=== PATIENT | female | born 1955 ===

== ENCOUNTER 2016-12-15 12:37 | Inpatient (IN) | payer MEDICARE, MEDICAID ==
[~2016-12-15] VITALS: Ht 165.1 cm; Wt 66.2 kg
--- NOTE | 2016-12-15 15:40 | NUR ---
PATIENT ARRIVED ON UNIT AT 1540 [facility], NO SIGS OF DISTRESS, NO COMPLAINTS OF PAIN, 139/89, 108 BPM, 17, 99% ON ROOM AIR, 4/10 PAIN LEVEL, DENIES NEED FOR PAIN MEDICATION, FAMILY AT BED SIDE, MEDICATIONS ENTER, MD LANDRY AND HONEY AWARE OF PATIENTS ARRIVAL, REDNESS NOTED TO SACRAL AREA, ABRASION NOTED TO PATIENTS RIGHT THIGH, LEFT SURGICAL SITE DOCUMENTED AND RE-DRESSED,FAMILY AT BED SIDE, EXTENDED STAY FORM SIGNED, MRSA SWAB SENT TO LAB, FAMILY REQUESTED URINE ANAYLSIS, ORDERS IN PLACE FOR CLEAN CATCH UA
[2016-12-15] MEDS ORDERED: PRAM0.253 PO (16:04)
[2016-12-15] MEDS ORDERED: SELE5CAP PO (16:04)
[2016-12-15] MEDS ORDERED: RIVA10TA PO (16:04)
[2016-12-15] MEDS ORDERED: OXYC-128 PO (16:04)
[2016-12-15] MEDS ORDERED: ACET-2154 PO (16:04)
[2016-12-15] MEDS ORDERED: LEVO75TA7 PO (16:04)
[2016-12-15] MEDS ORDERED: CARB-93 PO ×2 (16:04)
[2016-12-15] MEDS ORDERED: DOCU100C36 PO (16:04)
[2016-12-15 18:31] LABS: BILIRUBIN,TOTAL 0.7 mg/dL (0.2-1.0); CREATININE 0.7 mg/dL (0.6-1.3); MAGNESIUM 1.9 mg/dL (1.8-2.4); PHOSPHOROUS 3.3 mg/dL (2.5-4.9); POTASSIUM 3.7 mmol/L (3.5-5.1); TOTAL PROTEIN, SERUM 6.4 g/dL (6.4-8.2)
[2016-12-15 18:40] LABS: BASOPHILS % (AUTO) 0.1 % (0.0-2.0); EOSINOPHILS # (AUTO) 0.1 K/uL (0.0-0.7); EOSINOPHILS % (AUTO) 2.1 % (0.0-7.0); LYMPHOCYTES # (AUTO) 0.6 K/UL (0.8-4.8); LYMPHOCYTES % (AUTO) 8.9 % (20.5-51.5); MEAN CORPUSCULAR HEMOGLOBIN 29.5 UUG (27.0-31.0); MEAN CORPUSCULAR HGB CONC 33 g/dL (32.0-37.0); MEAN CORPUSCULAR VOLUME 88.4 FL (81.0-99.0); MONOCYTES # (AUTO) 0.3 K/UL (0.1-1.30); MONOCYTES % (AUTO) 4.1 % (0.0-11.0); NEUTROPHILS % (AUTO) 84.8 % (38.5-71.5); PLATELET COUNT (AUTO) 224 K/UL (150-450); RED BLOOD CELL COUNT(AUTO) 4.07 MIL/UL (4.2-5.4)
[2016-12-15] MEDS ORDERED: DOCUSATE SODIUM 100 MG CAPSULE PO PRN (19:45)
[2016-12-15] MEDS ORDERED: diphenhydrAMINE 25 MG CAP PO PRN (20:00)
--- NOTE | 2016-12-15 20:30 | NUR ---
Received pt on bed awake, agitated and restless. Family member at bedside during this time. Patient kept on taking off abductor pillow. Benadryl PRN for sleep and tylenol PRN given as ordered and well tolerated. Daughter refused due parkinson meds from the [facility], stated that she wants the medication that was brought from home. Called and informed pharmacy regarding daughter's concern. Call light within reach. Safety precautions observed and maintained. Will continue to monitor.
[2016-12-15] MEDS: RIVAROXABAN 10 MG TABLET PO SCH (20:41)
[2016-12-15] MEDS: ACETAMINOPHEN 325 MG TABLET PO PRN (20:41)
[2016-12-15] MEDS: PRAMIPEXOLE 1 MG PO SCH (21:00)
[2016-12-15] MEDS ORDERED: PRAMIPEXOLE 1 MG TABLET PO SCH (21:00)
[2016-12-15] MEDS ORDERED: CARBIDOPA/LEVODOPA 25-100MG TABLET PO SCH (21:00)
[2016-12-15] MEDS ORDERED: CARBIDOPA/LEVODOPA CR 25-100MG TABLET.SA PO SCH (21:00)
--- NOTE | 2016-12-15 21:00 | NUR ---
Pharmacy delivered parkinson meds and adjusted administration time. Due 2100 medication Pramipexole 1mg refused by the daughter. explained risk and benefits, still refused, stated that pt will just take it tomorrow morning.
--- NOTE | 2016-12-15 22:30 | NUR ---
Pt still restless and agitated, action installer made aware, ativan 1mg PO x1 was ordered. Order carried out. Pt has also due meds at 2300 (carbidopa-levodopa 50-200) but daughter refused that medication and wants the other medication carbidopa-levodopa 25-100 to be given instead. explained to the daughter that medication is not due till the next day but daughter is still insisting, stated that the pt missed 2 doses of medication already. Notified overnight houseperson and talked to the action installer pharmacist about daughter's request. Pharmacy agreed to give the unscheduled medication.
[2016-12-15] MEDS ORDERED: LORAZEPAM 1 MG TABLET PO PRN (23:00)
[2016-12-15] MEDS: CARBIDOPA LEVODOPA PO SCH ×2 (23:00)
[2016-12-15] MEDS ORDERED: LORAZEPAM 1 MG TABLET PO ONE (23:00)
--- NOTE | 2016-12-15 23:00 | NUR ---
Unscheduled medication and ativan given as ordered and as per daughter's request, tolerated well. safety precautions observed and maintained. Will continue to monitor the pt.
[2016-12-15] MEDS ORDERED: LORAZEPAM 1 MG TABLET ONE (23:02)
--- NOTE | 2016-12-16 01:29 | NUR ---
Pt was calm, lying in bed comfortably with HOB elevated. No acute distress noted. Abductor pillow in placed. frequently checked for safety. Call light within reach. All needs attended. Will continue to monitor.
--- NOTE | 2016-12-16 05:27 | NUR ---
Pt rested well. No s/s of distress was noted. Family member still at bedside. No other complaints was noted. Kept clean, dry and comfortable. Call light within. Frequently checked for safety. All needs anticipated. Will endorse new orders to day shift nurse.
--- NOTE | 2016-12-16 06:50 | NUR ---
Pt awake during this time. Incontinent care rendered. Daughter and son still concerned regarding patient's condition. MD made aware, still awaiting for response. Will endorse to day shift.
[2016-12-16] MEDS ORDERED: LEVOTHYROXINE SODIUM 75 MCG TABLET PO SCH (07:00)
[2016-12-16] MEDS: LEVOTHYROXINE 75 MCG PO SCH (07:41)
[2016-12-16] MEDS ORDERED: PRAMIPEXOLE 0.25 MG TABLET PO SCH (09:00)
[2016-12-16] MEDS ORDERED: CARBIDOPA/LEVODOPA 25-100MG TABLET PO SCH (09:00)
[2016-12-16] MEDS ORDERED: SELEGILINE HCL 5 MG PO SCH (09:00)
[2016-12-16] MEDS ORDERED: SELEGILINE HCL 5 MG TABLET PO SCH (09:00)
[2016-12-16] MEDS: SELEGILINE 5 MG PO SCH (09:06)
[2016-12-16] MEDS: PRAMIPEXOLE 1 MG PO SCH ×2 (09:07→15:04)
[2016-12-16] MEDS: CARBIDOPA LEVODOPA PO SCH ×4 (09:07→22:50)
[2016-12-16 09:26] LABS: *BILIRUBIN,URIN NEGATIVE (NEGATIVE); *BLOOD, URINE NEGATIVE (NEGATIVE); *CLARITY,URINE TURBID (CLEAR); *COLOR,URINE YELLOW (YELLOW); *KETONES,URINE 2+ (NEGATIVE); *PROTEIN,URINE NEGATIVE (NEGATIVE); LEUKOCYTE ESTERASE ,URINE NEGATIVE (NEGATIVE); NITRITE, URINE NEGATIVE (NEGATIVE); PH,URINE 7.5 (5.0-8.0); UGLUCOSE NEGATIVE (NEGATIVE)
[2016-12-16 10:28] LABS: BACTERIA,URINE NONE SEEN /HPF (NONE SEEN); RBC,URINE NONE SEEN /HPF (0-3); WBC,URINE 0-3 /HPF (0-3)
[2016-12-16 10:29] LABS: SQUAMOUS EPITHELIAL CELL,UR FEW /HPF (NONE SEEN); URINE AMORPHOUS PHOSPHATES MANY /HPF
--- NOTE | 2016-12-16 11:05 | NUR ---
Received a call from Dr. Lara with order to do x-ray of left hip as per family request. Family made aware. Informed him of the lab and urinalysis results with no new order.
[2016-12-16] MEDS: ACETAMINOPHEN 325 MG TABLET PO PRN (12:56)
[2016-12-16] MEDS ORDERED: HALOPERIDOL 0.5 MG TABLET PO PRN (14:15)
--- NOTE | 2016-12-16 14:15 | NUR ---
Dr. Armin Lara came to see patient and ordered Haldol 0.5mg PO Q6hrs PRN and discontinue Benadryl. Patient and family at bedside aware. Also he ordered to change frequency of Pramipexole to BID as previously been taken by patient.
--- NOTE | 2016-12-16 19:30 | NUR ---
Received patient sitting up in bed. Daughter and son at bedside. Patient is alert and verbally responsive. Able to make needs known. Denies any pain and discomfort at this time. No acute distress. Abductor pillow in place. Kept clean and dry. All needs attended to promptly. Call light within reach. Will continue to monitor.
[2016-12-16 20:00] VITALS: BP 101/71
[2016-12-16] MEDS: RIVAROXABAN 10 MG TABLET PO SCH (20:27)
--- NOTE | 2016-12-16 22:39 | NUR ---
Patient noted to be severely agitated hitting and screaming at daughter who is at her bedside. Approached patient in a calm and friendly manner. Explained to patient who I was and I was doing there and patient still noted to be extremely agitated. Batch Operator at bedside with me. Haldol 0.5mg PO 1 tablet given as ordered when patient finally calmed down and was able to take and swallow PO medication. Minutes later patient still noted to be very agitated. Still trying to hit daughter and also screaming out loud. We were unable to make out what she was saying. Daughter requested if we could get an alternative route for administration of medication. Dr. Armin Lara made aware of patient's status and aware that patient was able to take PO Haldol tablet. Dr. Lara with an order for Haldol 1mg IM x1. New orders noted. Daughter made aware of new order, but wanted to wait and see if PO medication would kick in before giving IM injection. Explained all risks and benefits of both medications. Daughter verbalizes understanding, but still wants to wait. All needs attended to promptly. Call light within reach. Will continue to monitor.
[2016-12-16] MEDS ORDERED: HALOPERIDOL LACTATE 5 MG/1 ML VIAL IM PRN (23:15)
[2016-12-16] MEDS ORDERED: HALOPERIDOL LACTATE 5 MG/1 ML VIAL IM ONE (23:15)
--- NOTE | 2016-12-16 23:30 | NUR ---
Patient still noted to be agitated still yelling and screaming out loud. Patient also noted to be trying to rip out her abductor pillow and pounding call light on the side of the bed making a lot of noise. She was also noted trying to greens picker anything she could on beside table. She had a towel and tried to hit staff. Daughter and airport operations supervisor at bedside with me at this time. Daughter still refusing for mom to receive Haldol IM injection bc she wanted to wait for her brother and wait to see what her cousin who is a Psychiatrist says. Mental Health Assistant and myself verbalized to daughter that patient will need IM medication because patient is becoming more agitated and can become a danger to self and hurt herself, but daughter still refused. Will continue to monitor patient.
--- NOTE | 2016-12-17 00:06 | NUR ---
Patient still noted to be agitated. Daughter finally agreed for Haldol IM injection to be given. Received medication from rocket propellant plant supervisor and Haldol 1mg (0.2 ml) was drawn up and administered to patient on the right thigh. Another RN and rocket propellant plant supervisor was with me at bedside. Patient tolerated well. All needs attended to promptly. Call light within reach. Will continue to monitor.
[2016-12-17] MEDS ORDERED: HALOPERIDOL LACTATE 5 MG/1 ML VIAL ONE (00:11)
--- NOTE | 2016-12-17 00:30 | NUR ---
Patient finally calmed down. Daughter and Son at bedside at this time. Son arrived to unit around 0015. All needs attended to promptly. Call light within reach. Will continue to monitor.
--- NOTE | 2016-12-17 01:00 | NUR ---
Patient is asleep comfortably at this time. Breathing normally. No acute distress noted. No SOB. Daughter and son at bedside. All needs attended to promptly. Call light within reach. Will continue to monitor.
--- NOTE | 2016-12-17 03:00 | NUR ---
Patient sleeping comfortably. Checked on patient and asked daughter if it's okay if we change her mom and daughter verbalizes that she didn't want it right now and wants patient to sleep.
--- NOTE | 2016-12-17 06:30 | NUR ---
Went to check on patient. Still sleeping comfortably in bed. Asked daughter if we can change patient and daughter verbalized to me that she wanted it done in an hour. Same goes for patients AM medication. Verbalized if she can get medication in an hour. Daughter aware that medication can be given an hour before and an hour after. Will endorse to day shift. All needs attended to promptly. Call light within reach. Will continue to monitor.
[2016-12-17 08:00] VITALS: BP 110/68
--- NOTE | 2016-12-17 08:00 | NUR ---
Received patient awake in bed, verbally responsive. No complain of pain or discomfort at this time. No SOB/dyspnea. Daughter and son at bedside. Call light placed within reach.
[2016-12-17] MEDS: LEVOTHYROXINE 75 MCG PO SCH (08:11)
--- NOTE | 2016-12-17 08:15 | NUR ---
Levothyroxine administered as endorsed by second shift supervisor nurse. Daughter requested to change schedule of Levothyroxine at 8am since patient wakes up late. Notified pharmacy c/o Deborah
[2016-12-17 08:17] LABS: BASOPHILS % (AUTO) 0.6 % (0.0-2.0); EOSINOPHILS # (AUTO) 0.2 K/uL (0.0-0.7); EOSINOPHILS % (AUTO) 4.6 % (0.0-7.0); HEMATOCRIT 33.3 % (31.2-41.9); HEMOGLOBIN 11.5 g/dL (10.9-14.3); LYMPHOCYTES # (AUTO) 0.9 K/uL (20.0-40.0); LYMPHOCYTES % (AUTO) 17.6 % (20.5-51.5); MEAN CORPUSCULAR HEMOGLOBIN 30.6 uug (24.7-32.8); MEAN CORPUSCULAR HGB CONC 34 g/dL (32.3-35.6); MEAN CORPUSCULAR VOLUME 89.1 fL (75.5-95.3); MONOCYTES # (AUTO) 0.4 K/uL (2.0-10.0); MONOCYTES % (AUTO) 7.5 % (0.0-11.0); NEUTROPHILS # (AUTO) 3.5 K/uL (1.8-8.9); NEUTROPHILS % (AUTO) 69.7 % (38.5-71.5); PLATELET COUNT (AUTO) 233 K/uL (179-408); RED BLOOD CELL COUNT(AUTO) 3.74 MIL/uL (3.63-4.92)
[2016-12-17 08:33] LABS: CREATININE 0.6 mg/dL (0.6-1.3); PHOSPHOROUS 3.7 mg/dL (2.5-4.9); POTASSIUM 3.7 mmol/L (3.5-5.1)
[2016-12-17 08:37] LABS: WHITE BLOOD COUNT (AUTO) 5.1 K/uL (3.8-11.8)
[2016-12-17] MEDS: PRAMIPEXOLE 1 MG PO SCH ×2 (09:20→15:16)
[2016-12-17] MEDS: SELEGILINE 5 MG PO SCH (09:20)
[2016-12-17] MEDS: CARBIDOPA LEVODOPA PO SCH ×4 (09:21→22:49)
[2016-12-17] MEDS ORDERED: LEVOTHYROXINE 75 MCG PO SCH (09:42)
[2016-12-17] MEDS: ACETAMINOPHEN 325 MG TABLET PO PRN (11:55)
--- NOTE | 2016-12-17 14:05 | NUR ---
Dr. Armin Lara came to see patient and ordered Haldol 1mg PO daily at 5PM . Order carried out. Patient and son at bedside aware.
[2016-12-17] MEDS ORDERED: HALOPERIDOL 1 MG TABLET PO SCH (17:00)
[2016-12-17] MEDS: HALOPERIDOL 1 MG TABLET PO SCH (19:00)
--- NOTE | 2016-12-17 19:30 | NUR ---
RECEIVED PT FROM DAY SHIFT NURSE. SHIFT REPORT AT BEDSIDE. FAMILY AT BEDSIDE. PT A/O WITH NO SIGNS OF PAIN, SOB, OR ACUTE DISTRESS. PERTINENT ASSESSMENT DONE. SAFETY MEASURES IMPLEMENTED. CALL LIGHT PLACED WITHIN REACH OF PT. WILL CONTINUE TO MONITOR PT THROUGH OUT SHIFT.
[2016-12-17] MEDS: RIVAROXABAN 10 MG TABLET PO SCH (20:22)
[2016-12-17 20:31] VITALS: BP 105/64
[2016-12-18] MEDS: ACETAMINOPHEN 325 MG TABLET PO PRN ×3 (03:10→23:07)
--- NOTE | 2016-12-18 06:40 | NUR ---
PT SLEPT COMFORTABLY THROUGH OUT THE SHIFT. FAMILY AT BEDSIDE. NO SIGNS OF SOB OR ACUTE DISTRESS. ALL NEEDS ATTENDED TO. MEDICATIONS ADMINISTERED ORDERED. CALL LIGHT WITHIN REACH OF PT. WILL ENDORSE TO MORNING SHIFT NURSE.
--- NOTE | 2016-12-18 07:20 | NUR ---
Received patient asleep, lying on bed on a semi-mcintosh's position no moaning or facial grimace noted. Patient's daughter at bedside awake. Per patient's daughter not to take patient's vital signs at this time and to let the patient sleep. Also patient's daughter stated not to give the Levothyroxine at 0800 as scheduled but to give it at 0830 since the patient is soundly asleep at this time. Called Dr. Armin Lara and informed of patient's daughter request. Call light within reach. Will continue to monitor. Patient's door remained close as per daughter's request.
[2016-12-18] MEDS: LEVOTHYROXINE 75 MCG PO SCH (08:31)
[2016-12-18] MEDS: SELEGILINE 5 MG PO SCH (09:15)
[2016-12-18] MEDS: CARBIDOPA LEVODOPA PO SCH ×4 (09:15→23:07)
[2016-12-18] MEDS: PRAMIPEXOLE 1 MG PO SCH ×2 (09:15→15:15)
--- NOTE | 2016-12-18 09:55 | NUR ---
Patient noted awake, lying on bed on a semi- mcintosh's position with no SOB or distress noted. Family member at bedside. call light within reach. Responsive to verbal and tactile stimuli. All needs were attended and anticipated. Will continue to monitor.
--- NOTE | 2016-12-18 10:55 | NUR ---
Noted patient awake, alert and oriented, performing exercise with PT without difficulty, no SOB or distress noted, tolerating well. Will continue to monitor.
[2016-12-18] MEDS: HALOPERIDOL 1 MG TABLET PO SCH (19:00)
--- NOTE | 2016-12-18 19:13 | NUR ---
patient awake, alert and oriented, no complaints of discomforts throughout the shift. Family member at bedside the at all times. All needs were attended and anticipated. All due medications were given, all were tolerated well. Call light within reach. Will endorse to incoming shift.
--- NOTE | 2016-12-18 19:29 | NUR ---
Patient refused the Haldol as scheduled. Explained risks and benefits but patient and family at bedside strongly refused the medication to be given. Will endorse to incoming shift.
--- NOTE | 2016-12-18 19:30 | NUR ---
Received patient on her wheelchair accompanied by her sister. Patient was awake, alert, oriented, verbally responsive. Denies pain at this time. No signs of respiratory distress. Surgical site assessed no signs of infection or any ready Safety measures provided. Placed the call light in reach.
[2016-12-18 20:00] VITALS: BP 124/80
[2016-12-18] MEDS: RIVAROXABAN 10 MG TABLET PO SCH (20:10)
--- NOTE | 2016-12-19 02:05 | NUR ---
Resident requested for her tylenol 650 mg due to generalized body pain and was given for her pain management. Will reassess and continue to monitor the patient.
[2016-12-19] MEDS: ACETAMINOPHEN 325 MG TABLET PO PRN ×3 (02:41→21:56)
[2016-12-19] MEDS: LEVOTHYROXINE 75 MCG PO SCH (06:52)
--- NOTE | 2016-12-19 07:12 | NUR ---
Patient slept the entire night. No signs of discomfort or pain. Vital signs are stable, not in respiratory distress. Levothyroxine was given early around 7am per patient's request. Will endorse to AM nurse.
[2016-12-19 07:16] VITALS: BP 128/84
--- NOTE | 2016-12-19 07:30 | NUR ---
Received patient awake, verbally responsive, afebrile, not in any form of acute distress. She denies any pain or discomfort at this time. Call light placed within reach. Reminded to use call light when in need of assistance. Assisted to her needs.
[2016-12-19] MEDS: SELEGILINE 5 MG PO SCH (08:40)
[2016-12-19] MEDS: CARBIDOPA LEVODOPA PO SCH ×4 (08:40→23:01)
[2016-12-19] MEDS: PRAMIPEXOLE 1 MG PO SCH ×2 (09:17→15:34)
--- NOTE | 2016-12-19 19:30 | NUR ---
Received patient seated in her wheelchair, wheels locked with daughter at her side. Patient is awake, alert and no agitations noted at this time. Vital signs checked, in stable condition. Safety measures implemented.
--- NOTE | 2016-12-19 20:00 | NUR ---
Daughter asked for help in putting the patient to her bed from her wheelchair. Assisted patient to bed with full assistance. Helped patient changed to her sleeping gown. Due meds. given. Changed diaper, per soiling. Marsha care done. Will monitor the patient.
[2016-12-19] MEDS: RIVAROXABAN 10 MG TABLET PO SCH (20:17)
--- NOTE | 2016-12-20 01:08 | NUR ---
Patient is awake and sitting up at the side of the bed wanting to get up. Noted to be agitated. Patient is talking to daughter in a very angry way. Trying to get up and go out of room. Unable to keep pt. in bed. Assisted her up with walker. Pt. wanted to walk around, so daughter and another nurse assisted patient down the hallway of the unit. Patient stomping walker on floor making a lot of noise and yelling. Patient made her way out of the unit making lots of noise. Notified household appliance mechanic. Per daughter, she requested to ask the doctor if her mother can receive Seroquel instead of taking the Haldol. Called [facility] and spoke with MD scale reclamation tender, Dr. Bob. Made him aware of patients hx and current situation and pt daughters request to have Seroquel ordered. Per MD, he did not feel comfortable prescribing that medication to patient. No hx of patient receiving Seroquel in records noted. MD also asked if pt. had any recent TSH levels done because TSH levels can lead to agitation, but verbalized that their wasn't any recent record of TSH result on file. MD ordered TSH levels to be done in AM and MD verbalized to let daughter know that Haldol would be better to give to patient than Seroquel because Haldol wears quicker than Seroquel and can cause her to be groggy. Relayed information to daughter and verbalized understanding, but requested for Haldol IM injection instead. Patient noted in justice way and still noted to be slightly agitated sitting in wheelchair. Another RN and division supervisor is with patient. All needs attended to promptly. Call light within reach. Will continue to monitor.
--- NOTE | 2016-12-20 01:20 | NUR ---
Patient still noted to be slightly agitated. Daughter requested for Haldol IM injection. This time informed Dr. Carr of patients behavior with new orders noted. Daughter made aware.
[2016-12-20] MEDS ORDERED: HALOPERIDOL LACTATE 5 MG/1 ML VIAL IM ONE (01:30)
--- NOTE | 2016-12-20 01:30 | NUR ---
Patient assisted back to bed. Patient noted to be calm at this time. Haldol IM was not given at this time. All needs attended to promptly. Call light within reach. Will continue to monitor.
--- NOTE | 2016-12-20 01:40 | NUR ---
Son is at bedside at this time. Patient noted to be sleeping comfortably. No acute distress noted. All needs attended to promptly. Call light within reach. Will continue to monitor.
[2016-12-20] MEDS: ACETAMINOPHEN 325 MG TABLET PO PRN ×2 (04:01→13:15)
--- NOTE | 2016-12-20 06:52 | NUR ---
Patient slept comfortably throughout the night. Daughter and son at bedside. No c/o pain and discomfort. No acute distress. Kept clean and dry. All needs attended to promptly. Call light within reach. Will continue to monitor.
[2016-12-20 07:27] LABS: BASOPHILS % (AUTO) 0.2 % (0.0-2.0); EOSINOPHILS # (AUTO) 0.2 K/uL (0.0-0.7); EOSINOPHILS % (AUTO) 3.6 % (0.0-7.0); HEMATOCRIT 31.4 % (37-47); HEMOGLOBIN 10.8 G/DL (12.0-16.0); LYMPHOCYTES # (AUTO) 1.6 K/UL (0.8-4.8); LYMPHOCYTES % (AUTO) 23.2 % (20.5-51.5); MEAN CORPUSCULAR HEMOGLOBIN 30.5 UUG (27.0-31.0); MEAN CORPUSCULAR HGB CONC 34 g/dL (32.0-37.0); MEAN CORPUSCULAR VOLUME 89.1 FL (81.0-99.0); MONOCYTES # (AUTO) 0.3 K/UL (0.1-1.30); MONOCYTES % (AUTO) 4.9 % (0.0-11.0); NEUTROPHILS # (AUTO) 4.6 K/UL (1.8-8.9); NEUTROPHILS % (AUTO) 68.1 % (38.5-71.5); PLATELET COUNT (AUTO) 301 K/UL (150-450); RED BLOOD CELL COUNT(AUTO) 3.53 MIL/UL (4.2-5.4); WHITE BLOOD COUNT (AUTO) 6.7 K/UL (4.0-11.2)
--- NOTE | 2016-12-20 07:45 | NUR ---
Received patient awake, alert x2-3, with family at bed-side. Not in apparent distress. Morning care done.
[2016-12-20 07:48] LABS: THYROID STIMULATING HORMONE 6.352 mIU/mL (0.358-3.740)
[2016-12-20] MEDS: LEVOTHYROXINE 75 MCG PO SCH (07:56)
[2016-12-20] MEDS: CARBIDOPA LEVODOPA PO SCH ×4 (08:03→23:00)
[2016-12-20] MEDS: PRAMIPEXOLE 1 MG PO SCH ×2 (08:03→16:11)
[2016-12-20] MEDS: SELEGILINE 5 MG PO SCH (08:03)
[2016-12-20 08:29] LABS: BILIRUBIN,TOTAL 0.7 mg/dL (0.2-1.0); CREATININE 0.6 mg/dL (0.6-1.3); PHOSPHOROUS 3.6 mg/dL (2.5-4.9); POTASSIUM 3.6 mmol/L (3.5-5.1); TOTAL PROTEIN, SERUM 6.1 g/dL (6.4-8.2)
[2016-12-20 08:44] VITALS: BP 132/79
--- NOTE | 2016-12-20 10:00 | NUR ---
Up with physical therapy, tolerating therapy well.
--- NOTE | 2016-12-20 13:00 | NUR ---
Not agitated. Complained of pain over Left Hip rated as 7/10. PRN Tylenol given.
--- NOTE | 2016-12-20 13:45 | NUR ---
INTERDISCIPLINARY TEAM SUMMARY
--- NOTE | 2016-12-20 13:48 | NUR ---
INTERDISCIPLINARY TEAM SUMMARY
[2016-12-20] MEDS ORDERED: Z GUARD REMEDY PASTE 57 GM TUBE TOP PRN (19:15)
--- NOTE | 2016-12-20 19:30 | NUR ---
Received patient in bed. Daughter and son at bedside. Sitter at bedside. Alert and verbally responsive. Able to make needs known. Denies any pain and discomfort. No acute distress. No SOB. Kept clean and dry. All needs attended to promptly. Call light within reach. Will continue to monitor.
[2016-12-20 20:00] VITALS: BP 108/67
[2016-12-20] MEDS: RIVAROXABAN 10 MG TABLET PO SCH (20:18)
[2016-12-20] MEDS ORDERED: TEMAZEPAM 15 MG CAPSULE PO PRN (21:00)
--- NOTE | 2016-12-20 21:30 | NUR ---
Sitter at bedside. Patient in bed. Noted to be agitated with a mug in her hand pounding on the bed rail of her bed and threatening to throw her cup at us everytime we tried to get close, yelling and screaming out loud. Approached patient in a calm and friendly manner and still noted to be severely agitated. umbrella supervisor made aware. Was able to remove cup from patients hand and tried to calm her down. Patient noted grabbing and trying to hit staff. Daughter informed about mother's current condition and verbalized that she was coming back to hospital. Per Daughter she did not want the patient to receive any Haldol and requested to ask the DrElba if their is a sleeping pill in injection form. Contacted Dr. Cruz who is recreational programs director and made him aware of current situation. Per Dr. Cruz he can prescribe patient a dose of Geodon IM x1 now or patient can take Haldol or Ativan Injection, but daughter refused. Verbalized to daughter that Per MD, Geodon is a lot more gentle. Daughter in facility and still refused. Daughter requested to give patient sleeping pill Restoril 15mg PO instead. Patient in bed at this time, still noted to be agitated and verbalized to daughter she wants to get up in wheelchair. Patient was able to take sleeping pill. Helped patient to wheelchair and daughter wheeled her out of unit to walk around. Sitter with Daughter and patient. All needs attended to promptly. Call light within reach. Will continue to monitor.
--- NOTE | 2016-12-20 22:00 | NUR ---
Patient is back in bed and asleep. No s/s of agitation at this time. No acute distress. No c/ of pain and discomfort. All needs attended to promptly. Call light within reach. Will continue to monitor.
--- NOTE | 2016-12-21 | NUR ---
Patient asleep comfortably at this time. No acute distress noted. No SOB. Sitter at bedside. All needs attended to promptly. Call light within reach. Will continue to monitor.
--- NOTE | 2016-12-21 02:00 | NUR ---
Patient continued to be asleep. No s/s of acute distress. No SOB. Sitter at bedside. All needs attended to promptly. Call light within reach. Will continue to monitor.
--- NOTE | 2016-12-21 04:30 | NUR ---
Patient is awake. Noted to be calm at this time. Sitter at bedside. Approached patient in a calm and friendly manner. Patient verbalized she is feeling much better, but has some pain in her leg. Tylenol 650mg administered as ordered. Tolerated well. Patient is sitting up and eating pudding. All needs attended to promptly. Safety measures taken. Call light within reach. Will continue to monitor.
[2016-12-21] MEDS: ACETAMINOPHEN 325 MG TABLET PO PRN (04:37)
[2016-12-21 08:00] VITALS: BP 134/86
[2016-12-21] MEDS: CARBIDOPA LEVODOPA PO SCH ×2 (08:24→15:44)
[2016-12-21] MEDS: PRAMIPEXOLE 1 MG PO SCH ×2 (08:24→15:42)
[2016-12-21] MEDS: LEVOTHYROXINE 75 MCG PO SCH (08:24)
[2016-12-21] MEDS: SELEGILINE 5 MG PO SCH (08:25)
[2016-12-21] MEDS: CYANOCOBALAMIN 1000 MCG/ML VIAL IM SCH (08:25)
[2016-12-21] MEDS ORDERED: QUETIAPINE FUMARATE 25 MG TABLET PO SCH ×3 (17:00→21:00)
--- NOTE | 2016-12-21 19:25 | NUR ---
Received pt in bed, asleep but easily arousable to verbal stimuli and light touch. Daughter and sitter at bedside. No acute distress noted. No SOB noted. All safety measures and fall precautions maintained. Call light in place and within reach. Will continue to monitor.
[2016-12-21 20:00] VITALS: BP 104/69
--- NOTE | 2016-12-21 20:21 | NUR ---
Seroquel 25mg due at 2100 not given. Seroguel 25mg given at 1800. Will continue to monitor. Addendum: 12/21/16 at 6 by Jaylon Kauffman RN SEROQUEL, not seroguel.
[2016-12-21] MEDS: PATIENT MAY USE OWN MED- MD OK PO SCH (20:24)
[2016-12-21] MEDS: RIVAROXABAN 10 MG TABLET PO SCH (20:25)
[2016-12-22] MEDS: ACETAMINOPHEN 325 MG TABLET PO PRN ×2 (05:27→12:59)
--- NOTE | 2016-12-22 06:49 | NUR ---
Pt slept intermittently, but comfortably throughout the evening. Sitter at bedside. No acute distress noted. Denies pain or discomfort. Tolerated all medications well. Kept clean and dry. All needs attended to promptly. All safety measures and fall precautions maintained. Call light within reach. Will continue to monitor.
[2016-12-22] MEDS: PRAMIPEXOLE 1 MG PO SCH ×2 (08:41→15:41)
[2016-12-22] MEDS: PATIENT MAY USE OWN MED- MD OK PO SCH ×3 (08:41→20:55)
[2016-12-22] MEDS: CYANOCOBALAMIN 1000 MCG/ML VIAL IM SCH (08:41)
[2016-12-22] MEDS: SELEGILINE 5 MG PO SCH (08:42)
[2016-12-22] MEDS: LEVOTHYROXINE 75 MCG PO SCH (08:42)
[2016-12-22 08:51] VITALS: BP 125/72
--- NOTE | 2016-12-22 10:00 | NUR ---
pt seen on rounding. pt continues to have vital signs within normal limits. pt tolerates room air. pt asked to have tylenol for pain. tylenol given. incision site clean and intact. dressing changed. no signs of infection. pt shows no confusion during the day. family requested to have seroquel given at 1800. family also requests to have boost given during meals. ordered boost and seroquel at time requested. will continue to monitor.
[2016-12-22] MEDS: BOOST GLUCOSE CONTROL 237 ML LIQUID (CHOCOLATE) PO SCH (17:00)
[2016-12-22] MEDS: QUETIAPINE FUMARATE 25 MG TABLET PO SCH (18:45)
--- NOTE | 2016-12-22 19:30 | NUR ---
Received pt in bed, awake and alert. Sitter and daughter at bedside. Denies pain or discomfort at this time. Able to make needs known. No acute distress noted. All safety measures and fall precautions maintained. Call light within reach. Will continue to monitor.
--- NOTE | 2016-12-22 19:38 | NUR ---
pt stable throughout the day. pt given night dose of seroquel at 1800 as stated by the family. pharmacy verified. pt stable throughout the day. wound dressing changed. no signs of infection. pt showed no signs of confusion throughout the day. pt took tylenol for pain. pt family also wanted to have boost bid. will endorse to sod cutter nurse.
[2016-12-22 20:50] VITALS: BP 122/74
[2016-12-22] MEDS: RIVAROXABAN 10 MG TABLET PO SCH (21:04)
[2016-12-22] MEDS: QUETIAPINE FUMARATE 25 MG TABLET PO PRN (21:04)
--- NOTE | 2016-12-22 21:15 | NUR ---
Pt noted with increased agitation and confusion. Daughter had gone home and pt requested for her to comeback. Daughter at bedside. Pt medicated with PRN Seroquel 12.5mg PO per MD order. Tolerated well. Will continue to monitor.
--- NOTE | 2016-12-22 23:36 | NUR ---
Pt in bed, appearing to be asleep. Daughter and sitter at bedside. No acute distress noted. Will continue to monitor.
--- NOTE | 2016-12-23 07:42 | NUR ---
Pt slept intermittently throughout the evening. Daughter and sitter at bedside. No acute distress noted. Denies pain or discomfort. All needs met promptly. All safety measures and fall precautions maintained. Kept clean and dry. Call light within reach. Will continue to monitor.
[2016-12-23 08:00] VITALS: BP 111/67
[2016-12-23] MEDS: BOOST GLUCOSE CONTROL 237 ML LIQUID (CHOCOLATE) PO SCH ×2 (08:42→18:10)
[2016-12-23] MEDS: LEVOTHYROXINE 75 MCG PO SCH (08:42)
[2016-12-23] MEDS: PRAMIPEXOLE 1 MG PO SCH ×2 (09:40→15:14)
[2016-12-23] MEDS: CYANOCOBALAMIN 1000 MCG/ML VIAL IM SCH (09:40)
[2016-12-23] MEDS: PATIENT MAY USE OWN MED- MD OK PO SCH ×3 (09:41→20:52)
[2016-12-23] MEDS: SELEGILINE 5 MG PO SCH (09:41)
[2016-12-23] MEDS: QUETIAPINE FUMARATE 25 MG TABLET PO SCH (18:10)
--- NOTE | 2016-12-23 19:30 | NUR ---
Received pt in bed, awake alert with family and sitter at bedside. Denies pain or discomfort at this time. Verbally responsive and able to make needs known. No acute distress noted. All safety measures and fall precautions maintained. Call light within reach. Will continue to monitor.
[2016-12-23 19:52] VITALS: BP 112/64
[2016-12-23] MEDS: RIVAROXABAN 10 MG TABLET PO SCH (20:58)
[2016-12-24] MEDS: QUETIAPINE FUMARATE 25 MG TABLET PO PRN (00:14)
[2016-12-24] MEDS: ACETAMINOPHEN 325 MG TABLET PO PRN ×2 (03:20→15:25)
--- NOTE | 2016-12-24 07:34 | NUR ---
Pt slept intermittently throughout the evening. Sitter at bedside. Kept clean and dry. Denies pain or discomfort. No acute distress noted. All needs met promptly. Tolerated all medications well. All safety measures and fall precautions maintained. Call light within reach. Will endorse to next shift.
[2016-12-24] MEDS: LEVOTHYROXINE 75 MCG PO SCH (08:17)
[2016-12-24] MEDS: BOOST GLUCOSE CONTROL 237 ML LIQUID (CHOCOLATE) PO SCH ×2 (08:18→17:44)
[2016-12-24] MEDS: PATIENT MAY USE OWN MED- MD OK PO SCH ×3 (09:23→20:56)
[2016-12-24] MEDS: CYANOCOBALAMIN 1000 MCG/ML VIAL IM SCH (09:23)
[2016-12-24] MEDS: PRAMIPEXOLE 1 MG PO SCH ×2 (09:24→16:11)
[2016-12-24] MEDS: SELEGILINE 5 MG PO SCH (09:24)
[2016-12-24] MEDS: QUETIAPINE FUMARATE 25 MG TABLET PO SCH (17:39)
[2016-12-24 20:00] VITALS: BP 98/58
[2016-12-24] MEDS: RIVAROXABAN 10 MG TABLET PO SCH (20:58)
[2016-12-25] MEDS: ACETAMINOPHEN 325 MG TABLET PO PRN ×3 (00:11→15:02)
[2016-12-25 07:52] VITALS: BP 127/80
[2016-12-25] MEDS: BOOST GLUCOSE CONTROL 237 ML LIQUID (CHOCOLATE) PO SCH ×2 (08:00→17:00)
[2016-12-25] MEDS: LEVOTHYROXINE 75 MCG PO SCH (08:20)
[2016-12-25] MEDS: PRAMIPEXOLE 1 MG PO SCH ×2 (08:22→15:02)
[2016-12-25] MEDS: PATIENT MAY USE OWN MED- MD OK PO SCH ×3 (08:22→21:09)
[2016-12-25] MEDS: SELEGILINE 5 MG PO SCH (08:23)
[2016-12-25] MEDS: CYANOCOBALAMIN 1000 MCG/ML VIAL IM SCH (08:26)
--- NOTE | 2016-12-25 11:30 | NUR ---
SBAR report received near bedside, board updated. Pt reports having slept well last night. Pt assessed, no SOB or acute distress, pain 5/10 r/t incisional pain on left hip. Tylenol administered as PRN orders. All comfort and safety measures met. 1:1 sitter at bedside and call light within reach. Will continue to monitor.
--- NOTE | 2016-12-25 12:37 | NUR ---
Boost missing from tray this morning. Dietary contacted and informed. Boost has arrived and Pt teaching provided.
[2016-12-25] MEDS: QUETIAPINE FUMARATE 25 MG TABLET PO SCH (17:26)
[2016-12-25] MEDS: RIVAROXABAN 10 MG TABLET PO SCH (21:08)
[2016-12-25] MEDS: QUETIAPINE FUMARATE 25 MG TABLET PO PRN (21:09)
--- NOTE | 2016-12-26 07:00 | NUR ---
Received patient awake, alert and oriented, lying on bed, resting with no SOB, distress or discomforts with her 1:1 sitter at bedside. All needs were attended and anticipated. Call light within reach. Will continue to monitor.
[2016-12-26] MEDS: LEVOTHYROXINE 75 MCG PO SCH (08:22)
[2016-12-26] MEDS: BOOST GLUCOSE CONTROL 237 ML LIQUID (CHOCOLATE) PO SCH ×2 (08:22→17:24)
[2016-12-26] MEDS: CYANOCOBALAMIN 1000 MCG/ML VIAL IM SCH (09:17)
[2016-12-26] MEDS: PRAMIPEXOLE 1 MG PO SCH ×2 (09:18→15:02)
[2016-12-26] MEDS: ACETAMINOPHEN 325 MG TABLET PO PRN (09:18)
[2016-12-26] MEDS: SELEGILINE 5 MG PO SCH (09:18)
[2016-12-26] MEDS: PATIENT MAY USE OWN MED- MD OK PO SCH ×3 (09:18→21:04)
[2016-12-26 09:39] VITALS: BP 114/72
--- NOTE | 2016-12-26 12:09 | NUR ---
Patient awake, alert and oriented, sitting on her wheelchair at bedside with her son with no complaints of pain or discomforts at this time. All needs were attended and anticipated. Call light placed within reach. Will continue to monitor.
--- NOTE | 2016-12-26 13:46 | NUR ---
Wound care dressing rajinder on patient's surgical site. No signs and symptoms of infection noted. patient denied any discomforts. Tolerated well the procedure.
[2016-12-26] MEDS: QUETIAPINE FUMARATE 25 MG TABLET PO SCH (17:58)
--- NOTE | 2016-12-26 19:18 | NUR ---
Patient asleep, lying on bed, easily aroused with 1:1 sitter at bedside. All needs were attended and anticipated. Call light within reach. Will endorse to incoming shift.
--- NOTE | 2016-12-26 19:30 | NUR ---
Pt awake alert with family member at bedside. No s/s of acute distress noted. No abnormal behavior or agitation present. Denies any pain or discomfort at this time. Family member requested female bedside sitter. Vital signs to be taken around 2100 as per family member. Will continue to monitor. Call light placed within reach.
[2016-12-26] MEDS: RIVAROXABAN 10 MG TABLET PO SCH (21:04)
[2016-12-26 21:13] VITALS: BP 102/64
--- NOTE | 2016-12-27 01:00 | NUR ---
Pt is asleep at this time. No acute distress or agitation noted. Sitter at bedside. Continue to monitor.
--- NOTE | 2016-12-27 06:00 | NUR ---
Pt in room alert in no distress. Sitter at bedside. Stated she wants her thyroid medication 25 min before breakfast. Denies any pain at this time. Continue to monitor.
[2016-12-27] MEDS: LEVOTHYROXINE 75 MCG PO SCH (07:14)
[2016-12-27] MEDS: BOOST GLUCOSE CONTROL 237 ML LIQUID (CHOCOLATE) PO SCH ×2 (08:00→17:00)
[2016-12-27 08:01] VITALS: BP 127/77
[2016-12-27] MEDS: SELEGILINE 5 MG PO SCH (08:50)
[2016-12-27] MEDS: CYANOCOBALAMIN 1000 MCG/ML VIAL IM SCH (08:50)
[2016-12-27] MEDS: PATIENT MAY USE OWN MED- MD OK PO SCH ×3 (08:51→20:49)
[2016-12-27] MEDS: PRAMIPEXOLE 1 MG PO SCH ×2 (08:52→14:31)
[2016-12-27] MEDS: ACETAMINOPHEN 325 MG TABLET PO PRN ×3 (08:59→20:49)
--- NOTE | 2016-12-27 15:14 | NUR ---
INTERDISCIPLINARY TEAM SUMMARY
[2016-12-27] MEDS: QUETIAPINE FUMARATE 25 MG TABLET PO SCH (17:25)
[2016-12-27] MEDS: BISACODYL 5 MG TABLET.DR PO PRN (17:29)
--- NOTE | 2016-12-27 18:21 | NUR ---
Patient participating well with therapy and sitter present. Good appetite and pain control. Family visiting in afternoon. Pt. complained of constipation and dulcolax tablets given per mar. No acute distress noted.
[2016-12-27] MEDS: RIVAROXABAN 10 MG TABLET PO SCH (20:48)
--- NOTE | 2016-12-28 04:22 | NUR ---
AAOX3-4 CALM AND PLEASANT. NO SIGNS OF AGITATION NOR ANY RESTLESSNESS. FAMILY VISITING. NEEDS ATTENDED. SITTER AT BEDSIDE. REPOSITIONED Q2HRS. TOLERATED PO MEDS WELL. KEPT COMFORTABLE. VITAL SIGNS STABLE. DENIES ANY PAIN NOR ANY DISCOMFORT. VOIDIG WELL.LEFT HIP DRESSING CHANGED ORDERED WITH STERISTRIPS AND DRY DRESSING APPLIED.
[2016-12-28 07:23] VITALS: BP 113/66
[2016-12-28] MEDS: BOOST GLUCOSE CONTROL 237 ML LIQUID (CHOCOLATE) PO SCH ×2 (08:00→17:37)
[2016-12-28] MEDS: PRAMIPEXOLE 1 MG PO SCH ×2 (09:28→14:55)
[2016-12-28] MEDS: BISACODYL 5 MG TABLET.DR PO PRN (09:28)
[2016-12-28] MEDS: PATIENT MAY USE OWN MED- MD OK PO SCH ×3 (09:29→20:44)
[2016-12-28] MEDS: LEVOTHYROXINE 75 MCG PO SCH (09:30)
[2016-12-28] MEDS: SELEGILINE 5 MG PO SCH (09:30)
[2016-12-28] MEDS: ACETAMINOPHEN 325 MG TABLET PO PRN ×2 (16:04→21:45)
[2016-12-28] MEDS: QUETIAPINE FUMARATE 25 MG TABLET PO SCH (19:24)
--- NOTE | 2016-12-28 19:30 | NUR ---
Received sitting up in chair eating. Daughter, Son and sitter at bedside. Patient is alert and verbally responsive. Able to make needs known. Approached patient in a calm and friendly manner. Seem to be in good spirits. No c/o pain and discomfort at this time. No acute distress. No SOB. On Room air. Kept clean and dry. All needs attended to promptly. Call light within reach. Will continue to monitor.
[2016-12-28] MEDS: RIVAROXABAN 10 MG TABLET PO SCH (20:45)
[2016-12-29] MEDS: ACETAMINOPHEN 325 MG TABLET PO PRN ×2 (05:06→11:41)
--- NOTE | 2016-12-29 06:23 | NUR ---
Patient slept comfortably throughout the night. No c/o pain and discomfort. No acute distress. No SOB. Kept clean and dry. Sitter at bedside. All needs attended to promptly. Call light within reach. Will continue to monitor.
--- NOTE | 2016-12-29 07:31 | NUR ---
Patient sitter and patient visiting . Sitter assist with patient care area organization. Patient a and o, pleasant.
[2016-12-29 07:41] VITALS: BP 146/83
[2016-12-29] MEDS: LEVOTHYROXINE 75 MCG PO SCH (08:00)
[2016-12-29] MEDS: BOOST GLUCOSE CONTROL 237 ML LIQUID (CHOCOLATE) PO SCH ×3 (08:00→17:27)
--- NOTE | 2016-12-29 08:19 | NUR ---
Patient taking her breakfast at this time with sitter present. Says her boost gives her constipation. Education on bowel regimen and physical activity with healthy diet to prevent constipation at the [facility]. Patient verbalizes understanding.
[2016-12-29] MEDS: BISACODYL 5 MG TABLET.DR PO PRN ×2 (08:46→09:47)
[2016-12-29] MEDS: QUETIAPINE FUMARATE 25 MG TABLET PO PRN ×3 (08:46→19:41)
[2016-12-29] MEDS: PRAMIPEXOLE 1 MG PO SCH ×3 (08:47→15:05)
[2016-12-29] MEDS: SELEGILINE 5 MG PO SCH ×2 (08:48→09:00)
[2016-12-29] MEDS: PATIENT MAY USE OWN MED- MD OK PO SCH ×4 (08:48→20:32)
--- NOTE | 2016-12-29 10:04 | NUR ---
Patient refuses am meds minus a synthroid. Patient daughter call re: meds. Explained meds and use in am. Agrees with am meds. Does not agree with seroquel for am use or any other time use than 1800.
--- NOTE | 2016-12-29 15:43 | NUR ---
I Agree Addendum: 12/29/16 at 1544 by ELVER HAWKINS OT Amended: Links added.
[2016-12-29] MEDS: QUETIAPINE FUMARATE 25 MG TABLET PO SCH (18:00)
--- NOTE | 2016-12-29 18:43 | NUR ---
Handoff report to night nurse.
--- NOTE | 2016-12-29 19:30 | NUR ---
RECEIVED PT FROM DAY SHIFT NURSE. SHIFT REPORT AT BEDSIDE. FAMILY AT BEDSIDE. SITTER AT BEDISDE. PT A/O X4 WITH NO SIGNS OF PAIN, SOB, OR ACUTE DISTRESS. PERTINENT ASSESSMENT DONE. SAFETY MEASURES IMPLEMENTED. CALL LIGHT PLACED WITHIN REACH OF PT. WILL CONTINUE TO MONITOR PT THROUGH OUT SHIFT.
[2016-12-29 20:00] VITALS: BP 107/75
[2016-12-29] MEDS: RIVAROXABAN 10 MG TABLET PO SCH (20:29)
--- NOTE | 2016-12-30 06:40 | NUR ---
PATIENT STABLE THROUGH OUT SHIFT. SLEPT COMFORTABLY WITH NO SIGNS OF PAIN, SOB, OR ACUTE DISTRESS. SITTER AT BEDSIDE. ALL NEEDS ATTENDED TO. MEDICATIONS ADMINISTERED ORDERED. SAFETY MEASURES IMPLEMENTED. VITAL SIGNS STABLE. CALL LIGHT WITHIN REACH OF PATIENT. WILL ENDORSE TO DAY SHIFT NURSE.
[2016-12-30] MEDS: LEVOTHYROXINE 75 MCG PO SCH (07:55)
[2016-12-30] MEDS: BOOST GLUCOSE CONTROL 237 ML LIQUID (CHOCOLATE) PO SCH (07:55)
[2016-12-30 08:09] VITALS: BP 139/81
[2016-12-30] MEDS: SELEGILINE 5 MG PO SCH (08:59)
[2016-12-30] MEDS: PATIENT MAY USE OWN MED- MD OK PO SCH (08:59)
[2016-12-30] MEDS: PRAMIPEXOLE 1 MG PO SCH (08:59)
--- NOTE | 2016-12-30 09:18 | NUR ---
Received patient awake, alert x2. Not in apparent distress. No complaints of discomfort at this time. Marsha-care done. Sitter at bedside. For possible discharge to SNF today.
--- NOTE | 2016-12-30 13:50 | NUR ---
[place] of [address] Briceño. advised Cardizem [id number]. Informed family of patient but they refused medication and refused IV insertion. Informed of risks and benefits but family's patient still refuses treatment ordered. Informed Dr. Briceño
--- NOTE | 2016-12-30 14:50 | NUR ---
IA 98, BP- 115/76. Patient more calm as compared earlier. Informed Dr Briceño and said was ok to discharge. Report given to [facility] of [facility]. Medication reconciliation attached. Discharge packet given to family. Transported to SNF by EMT via gurney. Discharge in stable condition, alert, awake x3. Dr. Carr also informed of discharge.
--- NOTE | 2017-01-01 14:40 | NUR ---
I agree Addendum: 01/01/17 at 1441 by HERBERT POLO OT Amended: Links added.
== END 2016-12-30 14:50 | DRG 559 ==
PROVIDERS: ADMIT Physical Medicine & Rehabilitation Pain Medicine; ATTEND Physical Medicine & Rehabilitation Pain Medicine
DX: S72.002D Fracture of unspecified part of neck of left femur, subsequent encounter for closed fracture with routine healing (principal); E43 Unspecified severe protein-calorie malnutrition; G93.40 Encephalopathy, unspecified; D68.59 Other primary thrombophilia; G20 Parkinson's disease; F05 Delirium due to known physiological condition; Z96.643 Presence of artificial hip joint, bilateral; F03.90 Unspecified dementia, unspecified severity, without behavioral disturbance, psychotic disturbance, mood disturbance, and anxiety; W19.XXXD Unspecified fall, subsequent encounter; I08.0 Rheumatic disorders of both mitral and aortic valves; D64.9 Anemia, unspecified; E03.9 Hypothyroidism, unspecified; F41.9 Anxiety disorder, unspecified; F51.4 Sleep terrors [night terrors]; G47.00 Insomnia, unspecified; K59.00 Constipation, unspecified; Z79.899 Other long term (current) drug therapy; R26.9 Unspecified abnormalities of gait and mobility; Z88.6 Allergy status to analgesic agent
CPT/HCPCS: 36415; 70030-TC; 73502; 82306; 83735; 84100; 84443; 85025; 87086; 92507; 92523; 97110; 97112; 97116; 97165; 97530; 97535; A4663; J1630; J3420; Q0163